=== PATIENT | female | born 1990 | race Caucasian/White ===

== ENCOUNTER 2025-08-26 21:28 | Inpatient (IN) | payer OTHER, SELFPAY ==
[~2025-08-26 21:28] MED LIST: Bupivacaine 0.25% HCL 30 ML VIAL ONE
[2025-08-26] MEDS ORDERED: hydrALAZINE 20 MG/ML VIAL SLOW IVP PRN (21:47)
[2025-08-26 21:49] VITALS: BMI 30.8
[2025-08-26] MEDS ORDERED: Acetaminophen 500 MG TAB PO PRN (22:48)
[2025-08-26] MEDS ORDERED: Carboprost 250 MCG/ML AMP IM PRN (22:48)
[2025-08-26] MEDS ORDERED: Methylergonovine 0.2 MG/ML VIAL IM PRN (22:48)
[2025-08-26] MEDS ORDERED: Ondansetron PF 4 MG/2 ML Vial IVP PRN (22:48)
[2025-08-26] MEDS ORDERED: Tranexamic Acid 1,000 MG/10 ML VIAL IVP PRN (22:48)
[2025-08-26] MEDS ORDERED: Diphenoxylate HCl/Atropine Tablet PO PRN ×2 (22:48)
[2025-08-26] MEDS: Magnesium Sulfate 20 gm/500 ml 20 GM/500 ML BAG IVPB SCH (22:59)
[2025-08-26] MEDS ORDERED: Penicillin G 2.5 MILL.units 2.5 MILL.UNITS in Premix 1 BAG IVPB SCH (23:00)
[2025-08-26] MEDS ORDERED: Oxytocin 30 units/NS 500 ML 500 ML IV SCH (23:00)
[2025-08-26] MEDS: Magnesium Sulfate 20 gm/500 ml 20 GM/500 ML BAG ONE (23:13)
[2025-08-26] MEDS ORDERED: NIFEdipine XL 60 MG ER.TAB PO SCH (23:15)
[2025-08-26] MEDS: NIFEdipine 10 MG CAP PO SCH (23:24)
[2025-08-26] MEDS: Penicillin G Potassium 5 MILL.UNITS in Sodium Chloride 0.9% 100 ML IVPB SCH (23:25)
[2025-08-26 23:57] LABS: #Basophils 0.04 10x3/uL (0.0-0.2); #Eosinophils Less than 0.03 10x3/uL (0.0-0.5); #Monocytes 0.55 10x3/uL (0.0-1.1); #Neutrophils 11.83 10x3/uL (1.5-8.4); %Basophils 0.3 % (0.0-2.0); %Eosinophils 0.1 % (0.0-6.0); %Lymphocytes 14.8 % (18.0-47.0); %Monocytes 3.7 % (0.0-10.0); %Neutrophils 80.1 % (40.0-75.0); Hematocrit 37.2 % (34.9-44.5); Hemoglobin 12.6 g/dL (12.0-15.5); Mean Corpuscular Hemoglobin 29.2 pg (27.0-33.0); Mean Corpuscular Volume 86.3 fL (81.6-98.3); Platelet Count 185 10x3/uL (150-450); Red Blood Cell (RBC) Count 4.31 10x6/uL (3.90-5.03); White Blood Cell (WBC) Count 14.77 10x3/uL (3.5-10.5)
[2025-08-27 00:03] LABS: ALT (SGPT) 26 U/L (Less than 34); AST (SGOT) 28 U/L (11-34); Albumin 3.1 g/dL (3.1-4.5); Alkaline Phosphatase 108 U/L (40-110); Anion Gap 12 mmol/L (10-20); BUN (Urea Nitrogen) 10 mg/dL (7.0-18.7); Bilirubin, Total 0.6 mg/dL (0.3-1.2); Calc. Creatinine Clearance 154 mL/min (70-130); Calcium 9.0 mg/dL (7.8-10.44); Carbon Dioxide 20 mmol/L (22-29); Chloride 105 mmol/L (98-107); Globulin 3.6 g/dL (2.4-3.5); Glucose 110 mg/dL (70-105); Potassium 3.3 mmol/L (3.5-5.1); Sodium 134 mmol/L (136-145)
[2025-08-27 00:23] LABS: Hep B Surf Ag - L&D Non-Reactive S/CO (NonReactive)
[2025-08-27 00:24] LABS: Syphilis Antibody Index 0.16 S/CO (<1.00 Non-Reactive)
[2025-08-27] MEDS: fentaNYL 2 mcg/Ropivacaine 0.2% Epidural 100 ML CADD EPIDURAL SCH (01:08)
[2025-08-27] MEDS ORDERED: Ondansetron PF 4 MG/2 ML Vial IVP PRN ×2 (01:13→05:32)
[2025-08-27] MEDS ORDERED: diphenhydrAMINE 50 MG/ML VIAL IVP PRN (01:13)
[2025-08-27] MEDS ORDERED: Communication Order-Pharmacy FS SCH (01:15)
[2025-08-27] MEDS: Oxytocin 30 units/NS 500 ML 500 ML ONE ×2 (01:36→07:01)
[2025-08-27] MEDS: Acetaminophen 325 MG TAB PO PRN (01:51)
[2025-08-27] MEDS: Penicillin G 2.5 MILL.units 2.5 MILL.UNITS in Premix 1 BAG IVPB SCH (04:35)
[2025-08-27] MEDS ORDERED: Milk Of Magnesia 30 ML UDCUP PO PRN (05:32)
[2025-08-27] MEDS ORDERED: Lanolin Ointment 7 GM TUBE TOP PRN (05:32)
[2025-08-27] MEDS ORDERED: HYDROcodone/Acetaminophen 5/325 mg Tablet PO PRN (05:32)
[2025-08-27] MEDS ORDERED: diphenhydrAMINE 25 MG CAP PO PRN (05:32)
[2025-08-27] MEDS ORDERED: hydrALAZINE 20 MG/ML VIAL SLOW IVP PRN (05:32)
[2025-08-27] MEDS ORDERED: Bisacodyl 10 MG SUPP PR PRN (05:32)
[2025-08-27] MEDS: Ibuprofen 800 MG TAB PO SCH (06:02)
[2025-08-27] MEDS: Ferrous Sulfate 325 MG TAB PO SCH (13:40)
[2025-08-28 07:52] VITALS: BP 141/78; TEMP 97.8
== END 2025-08-28 15:12 | disposition home or self-care (01) | DRG 807 ==
LOC: CSHLD/OP 21:28 → CSHLD 23:22 → CSHPP 08-27 05:18
PROVIDERS: ADMIT Family Medicine; ATTEND Family Medicine
PROC: 10E0XZZ Delivery of Products of Conception, External Approach (ICD-10-PCS; principal; 2025-08-26)
PROC: 10907ZC Drainage of Amniotic Fluid, Therapeutic from Products of Conception, Via Natural or Artificial Opening (ICD-10-PCS; 2025-08-26)
DX: O60.14X0 Preterm labor third trimester with preterm delivery third trimester, not applicable or unspecified (principal); Z37.0 Single live birth; Z3A.31 31 weeks gestation of pregnancy
CPT/HCPCS: 76815; 80053; 85025; 86762; 86780; 86850; 86900; 86901; 87340; J0665; J0702; J2540; J2590; J3475